=== PATIENT | female | born 1965 | race Hispanic/Latino ===

== ENCOUNTER 2016-11-07 16:38 | Emergency (ER) | payer OTHER ==
[2016-11-07] MEDS ORDERED: Lidocaine 2% Inj (20ml) INFIL ONE (17:16)
[2016-11-07 17:21] VITALS: RESP 18; TEMP 98.2; BMI 24.1
[2016-11-07] MEDS ORDERED: Bacitracin 500 Units/gm Oint Foilpak UD ONE (17:37)
--- NOTE | 2016-11-07 17:41 | C.PDOC ---
History Of Present Illness 51 year old patient presents to the emergency department complaining of a laceration to the right thumb prior to arrival. Patient was washing dishes when glass broke. Patient is right hand dominant. Patient denies fever, decreased sensation or motor. Time Seen by Provider: 11/07/16 17:07 Chief Complaint (Nursing): Abnormal Skin Integrity History Per: Patient History/Exam Limitations: no limitations Onset/Duration Of Symptoms: Hrs (prior to arrival) Current Symptoms Are (Timing): Still Present Quality Of Symptoms: Painful Severity: Moderate Pain Scale Rating Of: 4 Recent travel outside of the [place]: No Past Medical History Reviewed: Historical Data, Nursing Documentation, Vital Signs Vital Signs: Last Vital Signs Temp 98.2 F 11/07/16 17:02 Pulse 68 11/07/16 18:10 Resp 18 11/07/16 18:10 BP 118/69 11/07/16 18:10 Pulse Ox 99 11/07/16 20:49 - Medical History PMH: Depression Family History: States: Unknown Family Hx - Social History Hx Alcohol Use: No Hx Substance Use: No - Immunization History Hx Tetanus Toxoid Vaccination: Yes Hx Influenza Vaccination: Yes Hx Pneumococcal Vaccination: Yes Review Of Systems Except As Marked, All Systems Reviewed And Found Negative. Constitutional: Negative for: Fever Skin: Positive for: Other (laceration to right thumb) Neurological: Negative for: Weakness, Numbness Physical Exam - Physical Exam Appears: Non-toxic, No Acute Distress Skin: Warm, Dry, Other (3 cm "U" shaped laceration to the dorsal aspect of the thumb MCP, no tendon involvement evaluated) Head: Atraumatic, Normacephalic Eye(s): bilateral: Normal Inspection, EOMI Nose: Normal Oral Mucosa: Moist Neck: Normal ROM, Supple Chest: Symmetrical Respiratory: No Accessory Muscle Use Extremity: Normal ROM, Capillary Refill (<2 sec), No Deformity, Other (right thumb: 5/5 strength against resistance- though ellicits pain) Pulses: Left Radial: Normal, Right Radial: Normal Neurological/Psych: Oriented x3, Normal Speech, Normal Motor, Normal Sensation ED Course And Treatment O2 Sat by Pulse Oximetry: 99 (RA) Pulse Ox Interpretation: Normal Progress Note: Plan: -Tylenol. Discused risk sand benefits of XR, agreed upon no XR at the time. Patient tolerated the procedure well. Patient is discharged and instructed to follow up with hands specialist in 1-2 days or return if symptoms worsen. Laceration - Laceration Repair right thumb Wound Length (In cm): 3 Description Of Wound: Irregular ("U") Wound Cleansed With: Betadine, Sterile Saline Anesthesia: Lidocaine 2% Wound Examination: Irrigated With Saline, No FB With Wound Exploration, No Tendon Injury With Wound Exploration Wound Closure: Suture (4) Suture Technique And Material Used: Nylon (5-0) Wound Complexity: Simple Disposition - Disposition Referrals: Ralph Eli MD [Provisional Staff] - Disposition: HOME/ ROUTINE Disposition Time: 17:39 Condition: STABLE Additional Instructions: Wound check in 2 days. Suture removal in 7-10 days. Watch for signs of infection including redness, swelling and discharge. Follow up with primary medical doctor in 1-3 days without fail for further evaluation. Return to the emergency department at any time if symptoms persist or worsen. Instructions: Finger Laceration (ED) - Clinical Impression Clinical Impression: Laceration of finger - PA / BARTENDER MANAGER / Resident Statement MD/DO has reviewed & agrees with the documentation as recorded. - Scribe Statement The provider has reviewed the documentation as recorded by the Scribe Joyce Cobb All medical record entries made by the Scribe were at my direction and personally dictated by me. I have reviewed the chart and agree that the record accurately reflects my personal performance of the history, physical exam, medical decision making, and the department course for this patient. I have also personally directed, reviewed, and agree with the discharge instructions and disposition.
[2016-11-07 18:17] VITALS: BP 118/69; PULSE 68
[2016-11-07 20:36] VITALS: O2SAT 99
== END 2016-11-07 18:20 | disposition home or self-care (01) ==
LOC: C.ER 16:38
DX: S61.011A Laceration without foreign body of right thumb without damage to nail, initial encounter (principal); W25.XXXA Contact with sharp glass, initial encounter; Y93.G1 Activity, food preparation and clean up; Y92.000 Kitchen of unspecified non-institutional (private) residence as the place of occurrence of the external cause